=== PATIENT | female | born 1965 | race American Indian/Alaskan Native ===

== ENCOUNTER 2024-12-13 21:46 | Emergency (ER) | payer MEDICAID | END 2024-12-13 22:55 | disposition home or self-care (01) | LOC: JP.ED 21:46 | DX: S61.411A Laceration without foreign body of right hand, initial encounter (principal); I10 Essential (primary) hypertension; E11.9 Type 2 diabetes mellitus without complications; E78.00 Pure hypercholesterolemia, unspecified; Z86.16 Personal history of COVID-19; Z87.890 Personal history of sex reassignment; Z79.899 Other long term (current) drug therapy; Z79.82 Long term (current) use of aspirin; Z79.4 Long term (current) use of insulin; W26.0XXA Contact with knife, initial encounter | CPT/HCPCS: 99282 ==